=== PATIENT | male | born 1990 | race Caucasian/White ===

== ENCOUNTER 2020-05-15 19:39 | Day surgery (SDC) | payer SELFPAY ==
[2020-05-15] MEDS ORDERED: Glucagon,Human Recombinant 1 MG Vial IVPUSH ONE (20:14)
[2020-05-15] MEDS ORDERED: LORazepam 2 MG/ML SDV IVPUSH ONE (20:15)
--- NOTE | 2020-05-15 20:35 | EDM.PDOC ---
<Mario Nava - Last Filed: 05/15/20 20:17> ED HPI GENERAL MEDICAL PROBLEM - General Chief Complaint: ENT Problem Stated Complaint: SOMTHING IN THROAT Time Seen by Provider: 05/15/20 19:59 Source of Information: Reports: Patient History Limitations: Reports: No Limitations - History of Present Illness INITIAL COMMENTS - FREE TEXT/NARRATIVE: Grant is a 30 YO male that presents to the ED with a complaint of "something stuck in throat." He was eating steak approximately two hours prior when a piece became lodged in his esophagus. Sensation is located just above the suprasternal notch. He has been drinking fluids in an attempt to dislodge the blockage but has had no success. History of having similar events twice before. The first time was relieved by medication and the second time needed an endoscopy to retrieve the piece of solid food. He has been prescribed medication for this problem but states that he forgot them at his home in [place]. Unknown name of the medication. History of narrowing esophagus diagnosed during endoscopy. Denies odynophagia, difficulty swallowing fluids, nausea, vomiting, heartburn. Onset: Today Onset Date: 05/15/20 Onset Time: 18:00 Duration: Hour(s): Location: Reports: Neck - Related Data Allergies Allergy/AdvReac Type Severity Reaction Status Date / Time No Known Allergies Allergy Verified 05/15/20 20:00 Home Meds: Home Meds Omeprazole 20 mg PO BIDAC 30 Days #60 cap.sr 05/15/20 [Rx] Past Medical History - Past Surgical History Other GI Surgeries/Procedures: food bolus removal Musculoskeletal Surgical History: Reports: ORIF Social & Family History - Tobacco Use Smoking Status *Q: Never Smoker ED ROS ENT - Review of Systems Review Of Systems: See Below Respiratory: Denies: Shortness of Breath Cardiovascular: Denies: Chest Pain GI/Abdominal: Reports: Difficulty Swallowing. Denies: Abdominal Pain, Nausea, Vomiting ED EXAM, ENT - Physical Exam Exam: See Below Exam Limited By: No Limitations General Appearance: Alert, No Apparent Distress Mouth/Throat: Normal Inspection, Normal Gums, Normal Lips, Normal Oropharynx, Normal Teeth, Other (Sensation of food stuck in esophagus. ). No: Hoarse Voice, Muffled Voice, Throat Swelling, Tongue Swelling, Tonsillar Erythema, Tonsillar Exudates, Tonsillar Swelling Head: Atraumatic, Normocephalic Neck: Normal Inspection, Supple, Non-Tender Respiratory/Chest: No Respiratory Distress, Lungs Clear, Normal Breath Sounds Cardiovascular: Regular Rate, Rhythm, No Gallop, No Murmur, No Rub GI/Abdominal: Normal Bowel Sounds, Soft, Non-Tender Skin: Warm, Dry, Intact, Normal Color Departure - Departure Disposition: DC/Tfer to [facility] Clinical Impression: Esophageal obstruction due to food impaction - Discharge Information Sepsis Event Note (ED) - Evaluation Sepsis Screening Result: No Definite Risk <Raeann Escamilla - Last Filed: 05/18/20 13:00> Course - Vital Signs Last Recorded V/S: Last Vital Signs Temp 98.1 F 05/15/20 23:20 Pulse 71 05/15/20 23:35 Resp 12 05/15/20 23:35 BP 138/73 05/15/20 23:35 Pulse Ox 95 05/15/20 23:35 - Orders/Labs/Meds Labs: Laboratory Tests 05/15/20 Range/Units 21:26 COVID-19 (URI) Negative (NEGATIVE) Meds: Medications Discontinued Medications Generic Name Dose Route Start Last Admin Trade Name Freq PRN Reason Stop Dose Admin Dexamethasone Confirm 05/15/20 21:46 Dexamethasone Administered 05/15/20 21:47 Dose 4 mg .ROUTE .STK-MED ONE Dexamethasone Confirm 05/15/20 21:48 Dexamethasone Administered 05/15/20 21:49 Dose 4 mg .ROUTE .STK-MED ONE Ephedrine Sulfate 5 mg 05/15/20 22:11 Ephedrine Sulfate IVPUSH ASDIRECTED PRN Hypotension Fentanyl Confirm 05/15/20 21:47 Sublimaze Administered 05/15/20 21:48 Dose 100 mcg .ROUTE .STK-MED ONE Fentanyl 50 mcg 05/15/20 22:11 Sublimaze IVPUSH Q5M PRN Pain Glucagon 1 mg 05/15/20 20:14 05/15/20 20:31 Glucagen IVPUSH 05/15/20 20:15 1 mg ONETIME ONE Administration Hydromorphone HCl Confirm 05/15/20 21:46 Dilaudid Administered 05/15/20 21:47 Dose 1 mg .ROUTE .STK-MED ONE Hydromorphone HCl 1 mg 05/15/20 22:18 Dilaudid IVPUSH ONETIME PRN Pain Lidocaine HCl Confirm 05/15/20 21:46 Xylocaine-Mpf 1% Administered 05/15/20 21:47 Dose 6 mls @ as directed .ROUTE .STK-MED ONE Lactated Ringer's Confirm 05/15/20 21:46 Ringers, Lactated Administered 05/15/20 21:47 Dose 1,000 mls @ as directed .ROUTE .STK-MED ONE Phenylephrine HCl 1 mg/ Sodium 10.1 mls @ 1 mls/sec 05/15/20 22:15 Chloride IV TITRATE SABINO Protocol Ketorolac Tromethamine Confirm 05/15/20 21:46 Toradol Administered 05/15/20 21:47 Dose 30 mg .ROUTE .STK-MED ONE Lorazepam 1 mg 05/15/20 20:15 05/15/20 20:30 Ativan IVPUSH 05/15/20 20:16 1 mg ONETIME ONE Administration Midazolam HCl Confirm 05/15/20 21:47 Versed 1 Mg/Ml Administered 05/15/20 21:48 Dose 2 mg .ROUTE .STK-MED ONE Ondansetron HCl Confirm 05/15/20 21:46 Zofran Administered 05/15/20 21:47 Dose 4 mg .ROUTE .STK-MED ONE Ondansetron HCl 4 mg 05/15/20 22:11 Zofran IVPUSH ONETIME PRN Nausea/Vomiting Propofol Confirm 05/15/20 21:47 Diprivan 20 Ml Administered 05/15/20 21:48 Dose 400 mg .ROUTE .STK-MED ONE - Re-Assessments/Exams Free Text/Narrative Re-Assessment/Exam: I agree with the HPI as documented by ESSENCE Martin student. Patient is a 30-year-old male presenting with a food bolus stuck in his esophagus. He has had this occur on 2 other occasions, 1 of which required endoscopy to remove it. Food bolus has been stuck for approximately 2 hours prior to coming to the ER. He is unable to swallow liquids. Anything he tries to swallow he regurgitates back up. I have ordered glucagon 1 mg and Ativan 1 mg IV. We will wait about 15 minutes then have him drink carbonated fluids to see if he can move the bolus. 05/15/20 21:05 Patient has not been able to clear the food bolus. He continues to regurgitate up liquids. I did call and speak with the surgeon on-call, Dr. Chavarria. She will be in to see the patient with the intent of taking him for endoscopy. Departure - Departure Time of Disposition: 21:05 Condition: Good
--- NOTE | 2020-05-15 21:28 | PCM.PREANE ---
Preanesthetic Assessment - Procedure Proposed Procedure: Extraction of Food bolus/Endoscopy - Anesthesia/Transfusion/Family Hx Anesthesia History: Prior Anesthesia Without Reaction Family History of Anesthesia Reaction: No Transfusion History: No Prior Transfusion(s) Intubation History: Unknown - Review of Systems General: No Symptoms Pulmonary: No Symptoms Cardiovascular: No Symptoms Gastrointestinal: No Symptoms, Difficulty Swallowing (Narrowing of esophagus noted on prior EGD.) Neurological: No Symptoms Other: Reports: None - Physical Assessment NPO Status Date: 05/15/20 NPO Status Time: 18:00 Vital Signs: Last Vital Signs Temp 36.3 C 05/15/20 19:54 Pulse 82 05/15/20 19:54 Resp 16 05/15/20 19:54 BP 134/86 05/15/20 19:54 Pulse Ox 97 05/15/20 19:54 Height: 1.85 m Weight: 97.522 kg ASA Class: 1E Mental Status: Alert & Oriented x3 Airway Class: Mallampati = 2 Dentition: Reports: Normal Dentition, Caries Thyro-Mental Finger Breadths: 3 Mouth Opening Finger Breadths: 3 ROM/Head Extension: Full Lungs: Clear to Auscultation, Normal Respiratory Effort Cardiovascular: Regular Rate, Regular Rhythm, No Murmurs - Allergies Allergies/Adverse Reactions: Allergies Allergy/AdvReac Type Severity Reaction Status Date / Time No Known Allergies Allergy Verified 05/15/20 20:00 - Anesthesia Plan Pre-Op Medication Ordered: None - Acknowledgements Anesthesia Type Planned: General Anesthesia Pt an Appropriate Candidate for the Planned Anesthesia: Yes Alternatives and Risks of Anesthesia Discussed w Pt/Guardian: Yes Pt/Guardian Understands and Agrees with Anesthesia Plan: Yes PreAnesthesia Questionnaire - Past Surgical History Other GI Surgeries/Procedures: food bolus removal Musculoskeletal Surgical History: Reports: ORIF - SUBSTANCE USE Smoking Status *Q: Never Smoker - HOME MEDS Home Medications: Home Meds . [No Known Home Meds] 05/15/20 [History] - CURRENT (IN HOUSE) MEDS Current Meds: Current Medications Discontinued Medications Glucagon (Glucagen) 1 mg IVPUSH ONETIME ONE Stop: 05/15/20 20:15 Last Admin: 05/15/20 20:31 Dose: 1 mg Documented by: Lorazepam (Ativan) 1 mg IVPUSH ONETIME ONE Stop: 05/15/20 20:16 Last Admin: 05/15/20 20:30 Dose: 1 mg Documented by:
--- NOTE | 2020-05-15 21:38 | PCM.HP.2 ---
H&P History of Present Illness - General Date of Service: 05/15/20 Admit Problem/Dx: Admission Diagnosis/Problem Admission Diagnosis/Problem Food impaction of esophagus Source of Information: Patient, Provider History Limitations: Reports: No Limitations - History of Present Illness Initial Comments - Free Text/Narative: The patient is a 30-year-old gentleman who presented to the emergency department complaining of dysphasia. He reports had steak earlier today, about 3 and half hours ago, and the food did not go down. He has not been able to tolerate any liquids since that time. The patient has had this happen twice before within the last year. He was seen in another state for this problem, he had endoscopy with removal of a food bolus. He was prescribed an acid suppression medication at the time. He did not bring the medication with him when he travels most recently for work. He has not taken this medication in the last 11 days. - Related Data Allergies/Adverse Reactions: Allergies Allergy/AdvReac Type Severity Reaction Status Date / Time No Known Allergies Allergy Verified 05/15/20 20:00 Home Medications: Home Meds . [No Known Home Meds] 05/15/20 [History] Past Medical History Gastrointestinal History: Reports: Other (See Below) (dysphagia) - Past Surgical History HEENT Surgical History: Reports: Other (See Below) (Cleft palate repair x2) GI Surgical History: Reports: EGD Other GI Surgeries/Procedures: food bolus removal Musculoskeletal Surgical History: Reports: ORIF Social & Family History - Tobacco Use Smoking Status *Q: Never Smoker H&P Review of Systems - Review of Systems: Review Of Systems: See Below General: Reports: No Symptoms HEENT: Reports: No Symptoms Pulmonary: Reports: No Symptoms Cardiovascular: Reports: No Symptoms Gastrointestinal: Reports: Difficulty Swallowing Genitourinary: Reports: No Symptoms Musculoskeletal: Reports: No Symptoms Skin: Reports: No Symptoms Neurological: Reports: No Symptoms Hematologic/Lymphatic: Reports: No Symptoms Exam - Exam Exam: See Below - Vital Signs Vital Signs: Last Vital Signs Temp 36.3 C 05/15/20 19:54 Pulse 82 05/15/20 19:54 Resp 16 05/15/20 19:54 BP 134/86 05/15/20 19:54 Pulse Ox 97 05/15/20 19:54 Weight: 97.522 kg - Exam Quality Assessment: No: Supplemental Oxygen General: Severe Distress HEENT: Conjunctiva Clear, EOMI Neck: Supple Lungs: Normal Respiratory Effort GI/Abdominal Exam: Soft, Non-Tender, No Distention Peripheral Pulses: 2+: Dorsalis Pedis (L), Dorsalis Pedis (R) Skin: Warm, Dry, Intact Neurological: Cranial Nerves Intact Neuro Extensive - Mental Status: Normal Mood/Affect Sepsis Event Note - Evaluation Sepsis Screening Result: No Definite Risk - Focused Exam Vital Signs: Vital Signs Temp Pulse Resp BP Pulse Ox 05/15/20 19:54 36.3 C 82 16 134/86 97 Date Exam was Performed: 05/15/20 Time Exam was Performed: 22:03 *Q Meaningful Use (ADM) - VTE Risk Assess *Q Each Risk Factor Represents 1 Point: None Total Score 1 Point Risk Factors: 0 - Problem List (1) Esophageal obstruction due to food impaction SNOMED Code(s): 496033688 ICD Code: K22.2 - ESOPHAGEAL OBSTRUCTION; T18.128A - FOOD IN ESOPHAGUS CAUSING OTHER INJURY, INITIAL ENCOUNTER Status: Acute Current Visit: Yes Problem List Initiated/Reviewed/Updated: Yes Orders Last 24hrs: Active Orders 24 hr Category Date Time Status Patient Status [ADT] Routine ADT 05/15/20 21:19 Active Cardiac Monitoring [RC] . DIRECTED Care 05/15/20 20:15 Active CORONAVIRUS COVID-19 RAPID [MOLEC] Stat Lab 05/15/20 21:26 Received Schedule Procedure [COMM] Stat Oth 05/15/20 21:18 Ordered Assessment/Plan Comment:: 30-year-old gentleman with esophageal food obstruction -Plan for EGD with removal of the impacted food bolus. Discussed risks of bleeding perforation. The patient's written consent was obtained -Continue n.p.o. -IV fluid resuscitation as needed -Restart PPI with omeprazole Ginger Kruger MD General surgery - Mortality Measure Prognosis:: Good
[2020-05-15] MEDS ORDERED: Lidocaine 1% 6 ML ONE (21:46)
[2020-05-15] MEDS ORDERED: Ondansetron 4 MG/2 ML SDV ONE (21:46)
[2020-05-15] MEDS ORDERED: Succinylcholine/Sod PF 100 MG/5 ML SYRINGE IV ONE (21:46)
[2020-05-15] MEDS ORDERED: Lactated Ringers 1,000 ML ONE (21:46)
[2020-05-15] MEDS ORDERED: Dexamethasone 4 MG/ML SDV ONE ×2 (21:46→21:48)
[2020-05-15] MEDS ORDERED: HYDROmorphone 1 MG/ML Syringe ONE (21:46)
[2020-05-15] MEDS ORDERED: Ketorolac 15 MG/ML SDV ONE (21:46)
[2020-05-15] MEDS ORDERED: Midazolam 1 MG/ML 2 ML SDV ONE (21:47)
[2020-05-15] MEDS ORDERED: Propofol 200 MG/20 ML SDV ONE (21:47)
[2020-05-15] MEDS ORDERED: fentaNYL 100 MCG/2 ML SDV ONE (21:47)
[2020-05-15] MEDS ORDERED: Ondansetron 4 MG/2 ML SDV IVPUSH PRN (22:11)
[2020-05-15] MEDS ORDERED: fentaNYL 100 MCG/2 ML SDV IVPUSH PRN (22:11)
[2020-05-15] MEDS ORDERED: ePHEDrine 50 MG/ML SDV IVPUSH PRN (22:11)
[2020-05-15] MEDS ORDERED: Phenylephrine 1 MG in Sodium Chloride 0.9% 10 ML IV SCH (22:15)
[2020-05-15] MEDS ORDERED: HYDROmorphone 1 MG/ML Syringe IVPUSH PRN (22:18)
--- NOTE | 2020-05-15 22:41 | PCM.OPNOTE ---
- General Post-Op/Procedure Note Date of Surgery/Procedure: 05/15/20 Operative Procedure(s): EGD with removal of foreign body (obstructing food bolus) Findings: 6cm piece of meat lodged in the mid esophagus Pre Op Diagnosis: Esophageal obstructing food bolus Post-Op Diagnosis: same Anesthesia Technique: General ET Tube Primary Surgeon: Ginger Kruger Anesthesia Provider: Emily Painter Pathology: Gastric antrum for H. Pylori Fluid Replacement, Intraop: 600 Output, Urine Amount: 0 EBL in mLs: 0 Complications: none apparent Condition: Good
--- NOTE | 2020-05-15 22:47 | PCM.PRNOTE ---
- Free Text/Narrative Note: Operative Report Date of procedure: May 15, 2020 Preoperative diagnosis: Esophageal obstructing food bolus Postoperative diagnosis: Same Surgeon: Ginger Kruger M.D. Procedure: EGD with removal of foreign body (obstructing food bolus) Anesthesia: General Laundry Folder: Emily Painter CRNA IV fluids: 600 mL Estimated blood loss: 0 mL Specimens: Gastric antrum for H. pylori. Indication: The patient is a 30 -year-old gentleman who presented with an obstructing food bolus. The patient's main complaint was dysphagia and inability to tolerate p.o intake. The patient was consented for an EGD with intervention. Risk of bleeding and perforation were discussed. The patient's consent was obtained Description of the procedure: The patient was taken to the endoscopy suite and placed on hemodynamic monitoring. The nurse metal ceiling builder induced general anesthesia and the patient was intubated without difficulty. A bite block was placed. The patient was positioned in the left lateral decubitus position. A timeout was performed. The endoscope was gently placed into the mouth to the back of the pharynx and introduced into the esophagus. The scope was gently advanced under direct visualization down to the level of the food bolus in the midesophagus. The object was then grasped with a hexagonal snare and withdrawn through the mouth. The scope was then reinserted to inspect the area there was still an obstructing object this was again grasped using the hexagonal snare which was then withdrawn from the mouth this revealed an approximate 6 cm piece of unchewed meat. The scope was reinserted and was able to advance sound through the lower esophageal sphincter there was food and fluid present in the stomach the scope was advanced down through the pylorus into the first and second portion of the duodenum. There is no pathologic abnormality noted in the duodenum. The scope was then withdrawn back into the antrum. Tissue samples were taken in the antrum using a cold biopsy forceps for H. pylori testing due to the patient's history of recurrent dysphagia and need for acid suppression medication. We then attempted to aspirate the stomach contents. There was large particulate matter that prevented complete aspiration of this material. No other abnormalities were noted. The scope was then withdrawn while inspecting the esophagus. There was no esophagitis. The procedure was terminated. the patient tolerated the procedure well without any evidence of complications. Ginger Kruger MD General Surgery
--- NOTE | 2020-05-15 22:55 | PCM.POSTAN ---
POST ANESTHESIA ASSESSMENT - MENTAL STATUS Mental Status: Alert - VITAL SIGNS Vital Signs: Last Vital Signs Temp 97.8 05/15/202247 Pulse 97 05/15/208 Resp 16 05/15/202247 BP 153/86 05/15/202247 Pulse Ox 95 05/15/202247 - RESPIRATORY Respiratory Status: Respiratory Rate WNL, Airway Patent, O2 Saturation Stable - CARDIOVASCULAR CV Status: Pulse Rate WNL, Blood Pressure Stable - GASTROINTESTINAL GI Status: No Symptoms - POST OP HYDRATION Hydration Status: Adequate & Stable
--- NOTE | 2020-05-15 23:07 | PCM48HPAN ---
Post Anesthesia Note - EVALUATION WITHIN 48HRS OF ANESTHETIC Vital Signs in Normal Range: Yes Patient Participated in Evaluation: Yes Respiratory Function Stable: Yes Airway Patent: Yes Cardiovascular Function Stable: Yes Hydration Status Stable: Yes Pain Control Satisfactory: Yes Nausea and Vomiting Control Satisfactory: Yes Mental Status Recovered: Yes Vital Signs: Last Vital Signs Temp 36.6 C 05/15/20 22:48 Pulse 97 05/15/20 22:48 Resp 16 05/15/20 22:48 BP 153/86 H 05/15/20 22:48 Pulse Ox 98 05/15/20 22:53
== END 2020-05-15 23:50 | disposition home or self-care (01) ==
LOC: JD.ED 19:39 → JD.SDS 21:39
PROVIDERS: ATTEND Surgery
DX: K22.2 Esophageal obstruction (principal); T18.128A Food in esophagus causing other injury, initial encounter; K29.50 Unspecified chronic gastritis without bleeding; Z11.59 Encounter for screening for other viral diseases; Z98.890 Other specified postprocedural states
CPT/HCPCS: 43239; 43247; 87635; 96374; 96375; 99284; J0330; J1100; J1610; J1885; J2001; J2060; J2250; J2704; J7120; 00731; J1170; J2405; J3010; U0002